=== PATIENT | female | born 1975 | race African-American/Black ===

== ENCOUNTER 2016-12-27 15:51 | Emergency (ER) | payer OTHER ==
[~2016-12-27] VITALS: Ht 177.8 cm; Wt 77.1 kg
--- NOTE | 2016-12-27 16:15 | NUR ---
PRESENTS SELF TO ED DT ANTERIOR NECK SWELLING SINCE THIS MORNING. PATIENT IS AAO4. DENIES TRAUMA/MINJURY. NO DIFFICULY SWALLOWING HOWEVER, PATIENT VERBALIZED SLIGHT DISCOMFORT ON THE SITE. PATIENT'S VSS. AFEBRILE
[2016-12-27 16:38] LABS: BASOPHILS % (AUTO) 0.6 % (0.0-2.0); EOSINOPHILS # (AUTO) 0.1 /CMM (0.0-0.7); EOSINOPHILS % (AUTO) 1.6 % (0.0-6.0); HEMATOCRIT 41 % (33-45); HEMOGLOBIN 13.6 g/dL (11.5-14.8); LYMPHOCYTES # (AUTO) 1.2 /CMM (0.8-4.8); LYMPHOCYTES % (AUTO) 20.3 % (20.0-44.0); MEAN CORPUSCULAR HEMOGLOBIN 32 PG (26.0-33.0); MEAN CORPUSCULAR HGB CONC 33 g/dl (31.0-36.0); MEAN CORPUSCULAR VOLUME 97 fL (82-100); MONOCYTES # (AUTO) 0.4 /CMM (0.1-1.30); MONOCYTES % (AUTO) 6.1 % (2.0-12.0); NEUTROPHILS # (AUTO) 4.3 /CMM (1.8-8.9); NEUTROPHILS % (AUTO) 71.4 % (43.0-81.0); PLATELET COUNT (AUTO) 239 /CMM (150-450); RDW COEFFICIENT OF VARIATION 12.4 (11.5-15.0); RED BLOOD CELL COUNT(AUTO) 4.28 MIL/uL (4.0-5.2)
[2016-12-27 16:47] LABS: CALCIUM, SERUM 8.4 mg/dL (8.5-10.1); CREATININE 1.2 mg/dL (0.6-1.3); POTASSIUM 3.9 mmol/L (3.5-5.1)
[2016-12-27] MEDS ORDERED: IV NS 0.9% 250 ML IV ONE (17:02)
[2016-12-27] MEDS ORDERED: IOHEXOL-300 100 ML VIAL IV ONE (17:02)
[2016-12-27] MEDS ORDERED: CT SWABBABLE VALVE TRANS SET 1 EA INFUS.SET MC ONE (17:02)
[2016-12-27 18:18] VITALS: BP 104/67
--- NOTE | 2016-12-27 18:18 | NUR ---
MD HUFFMAN AT BEDSIDE, DISCUSSED PLAN OF DISCHARGE
== END 2016-12-27 18:28 | disposition home or self-care (01) ==
LOC: ER 16:03
DX: R59.1 Generalized enlarged lymph nodes (principal); Z88.0 Allergy status to penicillin
CPT/HCPCS: 36415; 70491; 80048; 84703; 85025; 99285; A4606; J7050; Q9967; Z7610

== ENCOUNTER 2018-08-24 04:49 | Emergency (ER) | payer OTHER, MEDICAID ==
[~2018-08-24] VITALS: Ht 180.3 cm; Wt 68.0 kg
[2018-08-24 05:01] VITALS: BP 119/84
[2018-08-24] MEDS ORDERED: CITALOPRAM HYDROBROMIDE 20 MG TABLET PO SCH (05:30)
[2018-08-24] MEDS ORDERED: CITALOPRAM HYDROBROMIDE 20 MG TABLET ONE (05:37)
== END 2018-08-24 05:45 | disposition home or self-care (01) ==
LOC: ER 04:50
DX: Z76.0 Encounter for issue of repeat prescription (principal); F32.9 Major depressive disorder, single episode, unspecified; Z98.890 Other specified postprocedural states; Z88.0 Allergy status to penicillin

== ENCOUNTER 2018-11-28 01:26 | Emergency (ER) | payer OTHER, MEDICAID ==
[~2018-11-28] VITALS: Ht 180.3 cm; Wt 85.7 kg
--- NOTE | 2018-11-28 01:45 | NUR ---
AAKASHRA FROM HOME. TO ER BED 10. AAOX4. NAD NOTED, BREATHING EVEN AND UNLABORED. C/O FEELING WEAK AFTER WAKING UP SWEATING EARLIER THIS EVENING. PT REPORT GOING TO THE BATHROOM AFTER AWAKENING FROM SLEEP AND FELT A DISCOMFORT ON HER RLQ ABD. PT REPORT HAVING AND I&D ON HER CHEST AND ON ATB BUT CANT REMEMEBER THE NAME. PT DENIES CP. -N-V-D. PT IS AFEBRILE. AWAITING MD ORDERS.
--- NOTE | 2018-11-28 01:54 | NUR ---
EMT AT BEDSIDE FOR EKG
--- NOTE | 2018-11-28 01:56 | NUR ---
PT AMBULATED TO BATHROOM FOR URINE COLLECTION WITH STEADY GAIT
[2018-11-28 02:16] LABS: MONOCYTES # (AUTO) 0.4 /CMM (0.1-1.30); NEUTROPHILS # (AUTO) 1.3 /CMM (1.8-8.9); RED BLOOD CELL COUNT(AUTO) 3.82 MIL/uL (4.0-5.2)
[2018-11-28 02:23] LABS: BASOPHILS % (AUTO) 0.4 % (0.0-2.0); EOSINOPHILS % (AUTO) 8.9 % (0.0-6.0); HEMATOCRIT 37 % (33-45); HEMOGLOBIN 12.4 g/dL (11.5-14.8); LYMPHOCYTES # (AUTO) 0.8 /CMM (0.8-4.8); LYMPHOCYTES % (AUTO) 28.9 % (20.0-44.0); MEAN CORPUSCULAR HGB CONC 33 g/dl (31.0-36.0); MEAN CORPUSCULAR VOLUME 98 fL (82-100); MONOCYTES % (AUTO) 14.5 % (2.0-12.0); NEUTROPHILS % (AUTO) 47.3 % (43.0-81.0); PLATELET COUNT (AUTO) 143 /CMM (150-450); WHITE BLOOD COUNT (AUTO) 2.7 K/uL (4.3-11.0)
[2018-11-28 02:27] LABS: APPEARANCE,URINE Clear (CLEAR); BILIRUBIN,URINE Negative (NEGATIVE); BLOOD, URINE Trace-intact Ery/uL (NEGATIVE); COLOR,URINE Yellow (YELLOW); KETONES,URINE Negative (NEGATIVE); LEUKOCYTE ESTERASE ,URINE Negative (NEGATIVE); NITRITE, URINE Negative (NEGATIVE); PROTEIN,URINE Negative (NEGATIVE); UGLUCOSE Negative (NEGATIVE); UROBILINOGEN,URINE 0.2 EU/dL (0.2)
[2018-11-28 02:31] LABS: CALCIUM, SERUM 7.9 mg/dL (8.5-10.1); POTASSIUM 3.7 mmol/L (3.5-5.1)
[2018-11-28 03:41] VITALS: BP 127/78
[2018-11-28 04:00] LABS: BAND % (MANUAL) 2 % (0.0-5.0); EOSINOPHILS % (MANUAL) 9 % (0-4); LYMPHOCYTES % (MANUAL) 30 % (16-48); MONOCYTES % (MANUAL) 15 % (0-11.0); NEUTROPHILS % (MANUAL) 43 (42-76); REACTIVE LYMPHOCYTES 1 % (0-0)
[2018-11-28 04:06] LABS: BACTERIA,URINE None seen /HPF (None Seen); RBC,URINE 0-2 /HPF (0-2); SQUAMOUS EPITHELIAL CELL,UR Moderate /HPF (None Seen); WBC,URINE 0-2 /HPF (0-3)
--- NOTE | 2018-11-28 04:16 | NUR ---
Patient discharged to home in stable condition. Written and verbal after care instructions given. Patient verbalizes understanding of instruction. Pt ambulatory with a steady gait
== END 2018-11-28 04:17 | disposition home or self-care (01) ==
LOC: ER 01:28
DX: R42 Dizziness and giddiness (principal); F41.9 Anxiety disorder, unspecified; F32.9 Major depressive disorder, single episode, unspecified; F10.10 Alcohol abuse, uncomplicated; Y90.9 Presence of alcohol in blood, level not specified; Z98.890 Other specified postprocedural states; Z88.0 Allergy status to penicillin
CPT/HCPCS: 36415; 80048-TC; 81000-TC; 84484-TC; 85025-TC

== ENCOUNTER 2022-09-15 19:35 | Emergency (ER) | payer MEDICARE, OTHER ==
[~2022-09-15] VITALS: Ht 180.3 cm; Wt 73.5 kg
--- NOTE | 2022-09-15 20:14 | NUR ---
URINE COLLECTED AND SENT TO LAB
[2022-09-15] MEDS ORDERED: IV NS 0.9% 1,000 ML BAG IV ONE (20:30)
[2022-09-15 20:42] LABS: BILIRUBIN,URINE 1+ (NEGATIVE); COLOR,URINE YELLOW (YELLOW); LEUKOCYTE ESTERASE ,URINE NEGATIVE (NEGATIVE); NITRITE, URINE NEGATIVE (NEGATIVE); PROTEIN,URINE 2+ mg/dl (NEGATIVE); UGLUCOSE NEGATIVE (NEGATIVE); UROBILINOGEN,URINE >=8.0 EU/dL (0.2)
[2022-09-15 20:49] LABS: BASOPHILS % (AUTO) 0.1 % (0.0-2.0); EOSINOPHILS % (AUTO) 4.8 % (0.0-6.0); HEMATOCRIT 37 % (33-45); LYMPHOCYTES # (AUTO) 0.4 K/uL (0.8-4.8); LYMPHOCYTES % (AUTO) 9.1 % (20.0-44.0); MEAN CORPUSCULAR HGB CONC 32 g/dl (31.0-36.0); MEAN CORPUSCULAR VOLUME 95 fL (82-100); MONOCYTES # (AUTO) 0.3 K/uL (0.1-1.30); NEUTROPHILS # (AUTO) 3.6 K/uL (1.8-8.9); PLATELET COUNT (AUTO) 118 K/uL (150-450); RED BLOOD CELL COUNT(AUTO) 3.92 MIL/uL (4.0-5.2); WHITE BLOOD COUNT (AUTO) 4.6 K/uL (4.3-11.0)
[2022-09-15 20:55] LABS: BACTERIA,URINE RARE /HPF (None Seen); MUCUS,URINE Many /LPF (None Seen); RBC,URINE 21-50 /HPF (0-2); WBC,URINE 0-2 /HPF (0-3)
[2022-09-15 20:59] LABS: CALCIUM, SERUM 8.5 mg/dL (8.5-10.1); CARBON DIOXIDE 24 mmol/L (21-32); CHLORIDE 100 mmol/L (98-107); CREATININE 1.1 mg/dL (0.6-1.3); GLUCOSE 132 mg/dL (74-106); POTASSIUM 3.5 mmol/L (3.5-5.1); SODIUM SERUM 133 mmol/L (136-145); UREA NITROGEN, BLOOD 10 mg/dL (7-18)
[2022-09-15 21:05] LABS: ALANINE AMINOTRANSFERASE 81 U/L (12-78); ALBUMIN 3.4 g/dL (3.4-5.0); ALKALINE PHOSPHATASE 95 U/L (46-116); ASPARTATE AMINOTRANSFERASE 79 U/L (15-37); BILIRUBIN,DIRECT 0.4 mg/dL (0.0-0.2); BILIRUBIN,TOTAL 1.5 mg/dL (0.2-1.0); TOTAL PROTEIN, SERUM 7.5 g/dL (6.4-8.2)
--- NOTE | 2022-09-15 21:29 | NUR ---
US TECH AT BEDSIDE
--- NOTE | 2022-09-15 22:26 | NUR ---
Pt is noted off the unit alert, responsive with no S/S off distress or C/O as she is been discharge to Home with all Discharge instructions given .
[2022-09-15 22:27] VITALS: BP 145/74
== END 2022-09-15 22:28 | disposition home or self-care (01) ==
LOC: ER 19:36
DX: R53.1 Weakness (principal); R63.0 Anorexia; F32.A Depression, unspecified; Z98.890 Other specified postprocedural states; Z88.0 Allergy status to penicillin
CPT/HCPCS: 99284; 96360; 76700; 93005; 85025; 80048; 80076; 84703; 81001; 36415; 84484; J7030

== ENCOUNTER 2022-12-23 14:29 | Emergency (ER) | payer MEDICARE, OTHER ==
[~2022-12-23] VITALS: Ht 180.3 cm; Wt 82.1 kg
[2022-12-23 15:31] LABS: BASOPHILS % (AUTO) 0.7 % (0.0-2.0); EOSINOPHILS # (AUTO) 0.1 K/uL (0.0-0.7); EOSINOPHILS % (AUTO) 2.9 % (0.0-6.0); HEMATOCRIT 36 % (33-45); HEMOGLOBIN 11.4 g/dL (11.5-14.8); LYMPHOCYTES # (AUTO) 1.2 K/uL (0.8-4.8); LYMPHOCYTES % (AUTO) 25.2 % (20.0-44.0); MEAN CORPUSCULAR HEMOGLOBIN 29 PG (26.0-33.0); MEAN CORPUSCULAR HGB CONC 32 g/dl (31.0-36.0); MEAN CORPUSCULAR VOLUME 91 fL (82-100); MONOCYTES # (AUTO) 0.3 K/uL (0.1-1.30); MONOCYTES % (AUTO) 5.6 % (2.0-12.0); NEUTROPHILS % (AUTO) 65.6 % (43.0-81.0); PLATELET COUNT (AUTO) 292 K/uL (150-450); RED CELL DISTRIBUTION WIDTH 14.1 % (11.5-15.0); WHITE BLOOD COUNT (AUTO) 4.6 K/uL (4.3-11.0)
[2022-12-23 15:39] LABS: CALCIUM, SERUM 9.1 mg/dL (8.5-10.1); CARBON DIOXIDE 25 mmol/L (21-32); CHLORIDE 106 mmol/L (98-107); GLUCOSE 106 mg/dL (74-106); POTASSIUM 3.8 mmol/L (3.5-5.1); SODIUM SERUM 140 mmol/L (136-145); UREA NITROGEN, BLOOD 8 mg/dL (7-18)
[2022-12-23 15:47] LABS: ALANINE AMINOTRANSFERASE 43 U/L (12-78); ALBUMIN 3.5 g/dL (3.4-5.0); ALCOHOL, BLOOD < 3 mg/dL (0-10); ALKALINE PHOSPHATASE 121 U/L (46-116); ASPARTATE AMINOTRANSFERASE 23 U/L (15-37); BILIRUBIN,DIRECT 0.1 mg/dL (0.0-0.2); BILIRUBIN,TOTAL 0.6 mg/dL (0.2-1.0); TOTAL PROTEIN, SERUM 7.7 g/dL (6.4-8.2)
[2022-12-23 15:50] LABS: ACETAMINOPHEN <10 ug/ml (10-30); SALICYLATE < 2.3 mg/dL (2.8-20.0)
[2022-12-23 16:17] LABS: APPEARANCE,URINE CLEAR (CLEAR); BILIRUBIN,URINE NEGATIVE (NEGATIVE); BLOOD, URINE NEGATIVE Ery/uL (NEGATIVE); COLOR,URINE YELLOW (YELLOW); KETONES,URINE NEGATIVE (NEGATIVE); LEUKOCYTE ESTERASE ,URINE 2+ (NEGATIVE); NITRITE, URINE NEGATIVE (NEGATIVE); PROTEIN,URINE NEGATIVE (NEGATIVE); UGLUCOSE NEGATIVE (NEGATIVE)
[2022-12-23 16:22] LABS: PREGNANCY TEST URINE QUAL NEGATIVE (NEGATIVE)
[2022-12-23 16:48] LABS: AMPHETAMINE, URINE NEGATIVE (NEGATIVE); BARBITURATE, URINE NEGATIVE (NEGATIVE); BENZODIAZEPINE, URINE NEGATIVE (NEGATIVE); CANNABINOID, URINE NEGATIVE (NEGATIVE); COCCAINE, URINE NEGATIVE (NEGATIVE); OPIATE, URINE NEGATIVE (NEGATIVE); PHENCYCLIDINE SCREEN,URINE NEGATIVE (NEGATIVE)
[2022-12-23 17:24] LABS: ADD URINE CULTURE YES; BACTERIA,URINE 1+ /HPF (None Seen); RBC,URINE NONE SEEN /HPF (0-2)
[2022-12-24] MEDS ORDERED: NITROFURANTOIN/MONOHYDRATE MACROCRYSTALS 100 MG CAPSULE PO ONE (02:30)
[2022-12-24] MEDS ORDERED: NITROFURANTOIN/MONOHYDRATE MACROCRYSTALS 100 MG CAPSULE ONE (03:14)
[2022-12-24 10:50] VITALS: BP 126/68; TEMP 97.9; O2SAT 98
== END 2022-12-24 14:36 ==
LOC: ER 14:32
DX: F32.A Depression, unspecified (principal); R45.4 Irritability and anger; Z88.0 Allergy status to penicillin; Z20.822 Contact with and (suspected) exposure to COVID-19
CPT/HCPCS: 36415; 80048-TC; 80076-TC; 81001; 84703-TC; 85025-TC; 87086-TC; C9803; G0480